=== PATIENT | female | born 1970 | race Caucasian/White ===

== ENCOUNTER 2017-09-10 17:12 | Emergency (ER) | payer OTHER ==
[~2017-09-10] VITALS: Ht 157.5 cm; Wt 59.1 kg
[2017-09-10 17:24] VITALS: TEMP 36.9; Ht 157.5 cm; Wt 59.1 kg
[2017-09-10] MEDS ORDERED: CYCL5TAB PO (18:07)
[2017-09-10] MEDS ORDERED: ATOR-22 PO (18:07)
[2017-09-10] MEDS ORDERED: GABA800T PO (18:07)
--- NOTE | 2017-09-10 18:51 | DIAGNOSTIC IMAGING REPORT ---
THORACIC SPINE WITHOUT CLINICAL HISTORY: 47 years-old Female presenting with lower thoracic injury from fall. TECHNIQUE: Multidetector CT of the thoracic spine was performed without the use of intravenous contrast. IV contrast: None. A dose lowering technique was used consistent with the principles of ALARA (as low as reasonably achievable). COMPARISON: None. CT DOSE (mGy.cm): The estimated cumulative dose is 299.88 mGy.cm. FINDINGS: Refrigeration Insulator topogram: Unremarkable. Slightly exaggerated thoracic kyphosis with a mild focal kyphotic deformity at T6. There is approximately 50% anterior height loss at this level. No significant osteopenia is appreciated. Mild superior endplate deformity with approximately 25% anterior vertebral body height loss of T9. No retropulsion of fracture fragments. No acute subluxation. No advanced degenerative change. No osseous neural foraminal or spinal canal narrowing. Visualized portion of the lung parenchyma demonstrates dependent groundglass opacities, likely atelectasis. Paraspinal musculature within normal limits allowing for noncontrast technique. IMPRESSION: 1. Fracture deformity of T9 with superior endplate concavity and approximately 25% vertebral body height loss. This may be an acute injury. 2. Approximately 50% anterior vertebral body height loss of T6. Correlate for point tenderness. MR of the thoracic spine would better demonstrate the potential presence of bony edema to suggest an acute or subacute injury. 3. No retropulsion of fracture fragments. No osseous spinal canal and neural foraminal narrowing. Electronically signed by: Stew Doherty M.D. 09/10/2017 6:50 PM Dictated Date/Time: 09/10/2017 6:44 PM
--- NOTE | 2017-09-10 19:00 | DIAGNOSTIC IMAGING REPORT ---
CHEST ONE VIEW PORTABLE HISTORY: 47 years-old Female fall acute chest trauma status post fall. COMPARISON: Thoracic spine CT of same day TECHNIQUE: Portable AP view of the chest FINDINGS: Cardiomediastinal and hilar silhouettes are within normal limits. The patient is slightly rotated to the left. There is no pneumothorax, pleural effusion, focal airspace consolidation or overt pulmonary edema. The bones of the chest appear grossly intact. IMPRESSION: No acute process. The above report was generated using voice recognition software. It may contain grammatical, syntax or spelling errors. Electronically signed by: Nito Medellin M.D. 09/10/2017 6:59 PM Dictated Date/Time: 09/10/2017 6:57 PM
[2017-09-10] MEDS ORDERED: OXYC-57 PO (19:11)
--- NOTE | 2017-09-10 19:15 | EMERGENCY ROOM VISIT NOTE ---
History Report prepared by Rebecaibe: Ana Murphy Under the Supervision of: Dr. Theodore Connor D.O. First contact with patient: 17:57 Chief Complaint: BACK INJURY Stated Complaint: FELL DOWN STAIRS, BACK PAIN History of Present Illness The patient is a 47 year old female who presents to the Emergency Room with complaints of persistent back pain that started this morning. She states she had just woken up and was walking downstairs, when she tripped on 4 stairs and fell onto her back. She rates her back pain as an 8/10 in severity. Movement worsens her pain. She went to a local [facility] clinic this morning and had X- rays, then was sent home to wait for the results. She was called this evening and told to come to the ED for an MRI. Source of History: patient Onset: this morning Position: back Symptom Intensity: 8/10 Timing: other (persistent) Modifying Factors (Worsening): movement Review of Systems See HPI for pertinent positives & negatives. A total of 10 systems reviewed and were otherwise negative. Past Medical & Surgical Medical Problems: (1) Hyperlipidemia (2) Seizure Social History Smoking Status: Never Smoker Alcohol Use: occasionally Drug Use: none Marital Status: Housing Status: lives with family Occupation Status: employed Current/Historical Medications Scheduled Atorvastatin (Lipitor), 20 MG PO QAM Cyclobenzaprine Hcl (Flexeril), 5 MG PO BID Gabapentin (Neurontin), 800 MG PO BID Scheduled PRN Oxycodone/Acetaminophen 5MG/325MG (Percocet 5MG/325MG), 1 TAB PO Q6H PRN for Pain Allergies Coded Allergies: No Known Allergies (Unverified , 09/10/17) Physical Exam Vital Signs Date Time Temp Pulse Resp B/P (MAP) Pulse Ox O2 Delivery O2 Flow Rate FiO2 09/10/17 19:18 72 18 109/72 98 Room Air 09/10/17 17:24 36.9 97 20 96/69 97 Room Air Physical Exam CONSTITUTIONAL/VITAL SIGNS: Reviewed / noted above. GENERAL: Non-toxic in appearance. INTEGUMENTARY: Warm, dry, and [place]. HEAD: Normocephalic. EYES: without scleral icterus or trauma. ENT/OROPHARYNX: clear and moist. LYMPHADENOPATHY/NECK: Is supple without lymphadenopathy or meningismus. RESPIRATORY: Lungs clear and equal. CARDIOVASCULAR: Regular rate and rhythm. GI/ABDOMEN: Soft and nontender. No organomegaly or pulsatile mass. No rebound or guarding. Normal bowel sounds. EXTREMITIES: Warm and well perfused. BACK: Tenderness overlying the lower thoracic region, no obvious deformity. NEUROLOGICAL: Intact without focal deficits. PSYCHIATRIC: normal affect. MUSCULOSKELETAL: Normally developed with good muscle tone. Medical Decision & Procedures ER Provider Diagnostic Interpretation: Radiology results as stated below per my review and radiologist interpretation: THORACIC SPINE WITHOUT CLINICAL HISTORY: 47 years-old Female presenting with lower thoracic injury from fall. TECHNIQUE: Multidetector CT of the thoracic spine was performed without the use of intravenous contrast. IV contrast: None. A dose lowering technique was used consistent with the principles of ALARA (as low as reasonably achievable). COMPARISON: None. CT DOSE (mGy.cm): The estimated cumulative dose is 299.88 mGy.cm. FINDINGS: Gardening Supervisor topogram: Unremarkable. Slightly exaggerated thoracic kyphosis with a mild focal kyphotic deformity at T6. There is approximately 50% anterior height loss at this level. No significant osteopenia is appreciated. Mild superior endplate deformity with approximately 25% anterior vertebral body height loss of T9. No retropulsion of fracture fragments. No acute subluxation. No advanced degenerative change. No osseous neural foraminal or spinal canal narrowing. Visualized portion of the lung parenchyma demonstrates dependent groundglass opacities, likely atelectasis. Paraspinal musculature within normal limits allowing for noncontrast technique. IMPRESSION: 1. Fracture deformity of T9 with superior endplate concavity and approximately 25% vertebral body height loss. This may be an acute injury. 2. Approximately 50% anterior vertebral body height loss of T6. Correlate for point tenderness. MR of the thoracic spine would better demonstrate the potential presence of bony edema to suggest an acute or subacute injury. 3. No retropulsion of fracture fragments. No osseous spinal canal and neural foraminal narrowing. Electronically signed by: Stew Doherty M.D. 09/10/2017 6:50 PM CHEST ONE VIEW PORTABLE HISTORY: 47 years-old Female fall acute chest trauma status post fall. COMPARISON: Thoracic spine CT of same day TECHNIQUE: Portable AP view of the chest FINDINGS: Cardiomediastinal and hilar silhouettes are within normal limits. The patient is slightly rotated to the left. There is no pneumothorax, pleural effusion, focal airspace consolidation or overt pulmonary edema. The bones of the chest appear grossly intact. IMPRESSION: No acute process. The above report was generated using voice recognition software. It may contain grammatical, syntax or spelling errors. Electronically signed by: Nito Medellin M.D. 09/10/2017 6:59 PM ED Course 175: Previous medical records were reviewed. The patient was evaluated in room B12B. A complete history and physical examination was performed. 1909: On reevaluation, the patient is feeling well. I discussed the results and findings with the patient. She verbalized agreement of the treatment plan. She was discharged home. 1914: Percocet 5/325 mg 1 tab PO. Medical Decision Differentials considered include cauda equina syndrome, conus medullaris, spinal cord compression syndrome, peripheral nerve compression, fractures or subluxations, intra-abdominal pathology such as abdominal aortic aneurysm or kidney stones, muscle strain, transverse myelitis, and spinal cord injury. This is a 47-year-old female who presents to the ED with a chief complaint of back pain. The patient states that she fell down the stairs earlier today in the morning. She slipped and fell directly onto her back. She was seen at [facility] and had an x-ray of the thoracic spine that revealed a possible superior endplate deformity on the T9 vertebrae. She was referred here for further evaluation. The patient has some discomfort with movement and some discomfort with palpation that general vicinity. Her exam is otherwise unremarkable visibly but she did have some tenderness in the mid lower thoracic area on palpation. A CT scan of the thoracic area reveals a fracture of the T6 and T9 vertebrae's. 50% anterior vertebral body height loss for T6 and 25% for T9. No retropulsion into the spinal canal. Chest x-ray was negative for acute disease. The patient was told the results of the test. She was given Percocet here. She is felt to be stable for discharge. Prescription given for Percocet. Referral to Dr. Barnhart for further evaluation and possible brace. Medication Reconcilliation Current Medication List: was personally reviewed by me Blood Pressure Screening Patient's blood pressure: Low blood pressure Impression Primary Impression: Fracture, thoracic vertebra, compression Scribe Attestation The scribe's documentation has been prepared under my direction and personally reviewed by me in its entirety. I confirm that the note above accurately reflects all work, treatment, procedures, and medical decision making performed by me. Departure Information Dispostion Home / Self-Care Prescriptions Oxycodone/Acetaminophen 5MG/325MG (PERCOCET 5MG/325MG) Tab 1 TAB PO Q6H Y for Pain, #30 TAB Prov: Theodore Connor D.O. 09/10/17 Referrals No Doctor, Assigned (PCP) Jeffrey Barnhart D.O. Patient Instructions [facility] Additional Instructions Percocet as prescribed. No driving within 6 hours of use. Do not take additional Tylenol while taking Percocet. Follow-up with Dr. Barnhart, orthopedics, for further evaluation. Call tomorrow for an appointment. Follow-up with your doctor for further care and evaluation in 1-2 days. Return to the emergency department for worsening or new symptoms or any concerns. You have been examined and treated today on an emergency basis only. This is not a substitute for, or an effort to provide, complete comprehensive medical care. It is impossible to recognize and treat all injuries or illnesses in a single emergency department visit. It is therefore important that you follow up closely with your doctor. Call as soon as possible for an appointment.
[2017-09-10 19:18] VITALS: BP 109/72; PULSE 72; O2SAT 98
[2017-09-10] MEDS ORDERED: OXYCODONE/ACETAMINOPHEN 5-325 TAB PO ONE (19:30)
== END 2017-09-10 19:31 | disposition home or self-care (01) ==
LOC: C.EDB 17:14
DX: S22.070A Wedge compression fracture of T9-T10 vertebra, initial encounter for closed fracture (principal); W10.9XXA Fall (on) (from) unspecified stairs and steps, initial encounter; E78.5 Hyperlipidemia, unspecified; Z79.899 Other long term (current) drug therapy